=== PATIENT | female | born 1935 | race Caucasian/White ===

== ENCOUNTER 2017-11-21 12:08 | Emergency (ER) | payer MEDICARE ==
[~2017-11-21] VITALS: Ht 160 cm; Wt 58.0 kg
[2017-11-21 12:09] VITALS: BP 153/84; PULSE 91; RESP 16; TEMP 98.7; O2SAT 96
--- NOTE | 2017-11-21 12:55 | RADRPT ---
EXAM DATE/TIME: 11/21/2017 12:37 [facility] COMPARISON: No previous studies available for comparison. INDICATIONS : Flu-like symptoms for 1 month. MEDICAL HISTORY : None. SURGICAL HISTORY : None. ENCOUNTER: Initial ACUITY: 1 month PAIN SCORE: 0/10 LOCATION: Bilateral chest FINDINGS: PA and lateral views of the chest demonstrate the lungs to be symmetrically aerated without evidence of mass, infiltrate or effusion. The cardiomediastinal contours are unremarkable. Osseous structure s are intact. Costicartilage calcification is present. CONCLUSION: No acute disease. There is no evidence of pneumonia. Huber Napoles MD on November 21, 2017 at 12:52 Board Certified Radiologist. This report was verified electronically.
[2017-11-21 13:33] LABS: AUTOMATED NEUTROPHIL # 11.3 TH/MM3 (1.8-7.7); BASOPHIL # 0.1 TH/MM3 (0-0.2); BASOPHIL % 0.4 % (0.0-2.0); EOSINOPHIL # 0.2 TH/MM3 (0-0.4); EOSINOPHIL % 1.2 % (0.0-4.0); HEMATOCRIT 44.1 % (35.0-46.0); HEMOGLOBIN 14.7 GM/DL (11.6-15.3); LYMPHOCYTE # 2.2 TH/MM3 (1.0-4.8); MEAN CELL VOLUME 92.2 FL (80.0-100.0); MEAN CORPUSCULAR HEMOGLOBIN 30.8 PG (27.0-34.0); MEAN CORPUSCULAR HGB CONC 33.5 % (32.0-36.0); MEAN PLATELET VOLUME 6.6 FL (7.0-11.0); MONO % 6.7 % (0.0-8.0); NEUT % 76.7 % (16.0-70.0); PLATELET COUNT 399 TH/MM3 (150-450); RED BLOOD COUNT 4.78 MIL/MM3 (4.00-5.30); RED CELL DISTRIBUTION WIDTH 13.6 % (11.6-17.2); WHITE BLOOD COUNT 14.8 TH/MM3 (4.0-11.0)
[2017-11-21 13:54] LABS: ALBUMIN 3.6 GM/DL (3.4-5.0); ALT (GPT) 18 U/L (10-53); AST (GOT) 19 U/L (15-37); BICARBONATE 25.4 MEQ/L (21.0-32.0); BLOOD UREA NITROGEN 18 MG/DL (7-18); CALCIUM 9.8 MG/DL (8.5-10.1); CHLORIDE 104 MEQ/L (98-107); CREATININE 1.25 MG/DL (0.50-1.00); GLOMERULAR FILTRATION RATE 41 ML/MIN (>89); GLUCOSE,RANDOM 90 MG/DL (74-106); MAGNESIUM 2.6 MG/DL (1.5-2.5); SODIUM (NA) 137 MEQ/L (136-145)
[2017-11-21 13:57] LABS: ALKALINE PHOSPHATASE 93 U/L (45-117); TOTAL BILIRUBIN ADULT 0.7 MG/DL (0.2-1.0); TOTAL PROTEIN 7.3 GM/DL (6.4-8.2)
[2017-11-21 15:00] VITALS: BP 150/67; PULSE 84; RESP 18; O2SAT 94
[2017-11-21] MEDS ORDERED: LOVA20TA PO (17:04)
[2017-11-21] MEDS ORDERED: SPIRCAP INH (17:04)
[2017-11-21] MEDS ORDERED: LOSA50TA PO (17:04)
[2017-11-21] MEDS ORDERED: FLUT1SPR9 EACH NARE (17:04)
[2017-11-21] MEDS ORDERED: ALBU0.08 NEB (17:14)
[2017-11-21] MEDS ORDERED: ADVA250A INH (17:14)
--- NOTE | 2017-11-21 17:49 | PD ---
HPI Chief Complaint: Respiratory Symptoms Time Seen by Provider: 17:32 Travel History International Travel<30 days: No Contact w/Intl Traveler<30days: No Traveled to known affect area: No History of Present Illness HPI 81-year-old female complains of sinus pressure, sore throat, earache, shortness of breath, fever or chills. Patient states that the symptoms started about a month ago. Patient has history of COPD. Patient with seen by surgery tech Dr. Johnson and given a prescription for prednisone for 8 days. Patient was not given prescription for Levaquin subsequently for 5 days. Last dose of Levaquin because 6 days ago. Patient with again given prescription for Medrol Dosepak recently. Patient states that she has persistent symptoms sinus pressure, right -sided frontal headache, right-sided facial pressure, sore throat with right earache. Patient states that the symptoms are worse for the past 2 days. Patient states that she having low-grade fever chills at home. Patient denies any nausea vomiting diarrhea. Patient denies any chest pain. Patient denies abdominal pain. Patient with advised by personal physician to go to ED for evaluation. Patient has history of hypertension, hyper lipidemia. PFSH Past Medical History Asthma: Yes High Cholesterol: Yes COPD: Yes Hypertension: Yes Past Surgical History Hysterectomy: Yes Tympanostomy Tube: Yes Other Surgery: Yes (HEMMROIDS REMOVED ) Social History Alcohol Use: No Tobacco Use: No Substance Use: No Allergies-Medications (Allergen,Severity, Reaction): Coded Allergies: Sulfa (Sulfonamide Antibiotics) (Verified Allergy, Unknown, 11/21/17) Reported Meds & Prescriptions Reported Meds & Active Scripts Active Reported Advair Diskus Inh (Fluticasone-Salmeterol Inh) 250-50 Mcg/Blist Aer 1 Puff INH BID Rinse mouth after use. Albuterol Neb (Albuterol Sulfate) 2.5 Mg/3 Ml Neb 2.5 Mg NEB Q6HR PRN Spiriva Handihaler (Tiotropium Inh) 18 Mcg Cap 18 Mcg INH DAILY 1 capsule = 18 mcg Lovastatin 20 Mg Tab 20 Mg PO DAILY Flonase Allergy Relief Children Nasal Roselle (Fluticasone Nasal Roselle) 50 Mcg/ Act Roselle 1 Roselle EACH NARE DAILY 50 mcg/spray Losartan (Losartan Potassium) 50 Mg Tab 50 Mg PO DAILY Review of Systems General / Constitutional: No: Fever Eyes: No: Visual changes HENT: Positive: Headaches, Sore Throat, Congestion, Earache Cardiovascular: No: Chest Pain or Discomfort Respiratory: Positive: Shortness of Breath Gastrointestinal: No: Abdominal Pain Genitourinary: No: Dysuria Musculoskeletal: No: Pain Skin: No Rash Neurologic: No: Weakness Psychiatric: No: Depression Endocrine: No: Polydipsia Hematologic/Lymphatic: No: Easy Bruising Physical Exam Narrative GENERAL: Well-nourished, well-developed patient. SKIN: Focused skin assessment warm/dry. HEAD: Normocephalic. EYES: No scleral icterus. No injection or drainage. TM: Clear. Throat: Mouth erythematous. NECK: Supple, trachea midline. No JVD patient has mild right anterior cervical lymphadenopathy. No meningismus.. CARDIOVASCULAR: Regular rate and rhythm without murmurs, gallops, or rubs. RESPIRATORY: Breath sounds equal bilaterally. No accessory muscle use. GASTROINTESTINAL: Abdomen soft, non-tender, nondistended. MUSCULOSKELETAL: No cyanosis, or edema. BACK: Nontender without obvious deformity. No CVA tenderness. Neurologic exam normal. Data Data Last Documented VS Vital Signs Date Time Temp Pulse Resp B/P (MAP) Pulse Ox O2 Delivery O2 Flow Rate FiO2 11/21/17 15:00 84 18 150/67 (94) 94 Room Air 11/21/17 12:09 98.7 Orders Orders Complete Blood Count With Diff (11/21/17 12:27) Comprehensive Metabolic Panel (11/21/17 12:27) Magnesium (Mg) (11/21/17 12:27) Chest, Pa & Lat (11/21/17 12:27) Group A Rapid Strep Screen (11/21/17 17:40) Influenzae A/B Antigen (11/21/17 17:40) Ct Sinuses W/O Iv Contrast (11/21/17 ) Strep Culture (Group A) (11/21/17 17:44) Labs Laboratory Tests Test 11/21/17 13:10 White Blood Count 14.8 TH/MM3 Red Blood Count 4.78 MIL/MM3 Hemoglobin 14.7 GM/DL Hematocrit 44.1 % Mean Corpuscular Volume 92.2 FL Mean Corpuscular Hemoglobin 30.8 PG Mean Corpuscular Hemoglobin Concent 33.5 % Red Cell Distribution Width 13.6 % Platelet Count 399 TH/MM3 Mean Platelet Volume 6.6 FL Neutrophils (%) (Auto) 76.7 % Lymphocytes (%) (Auto) 15.0 % Monocytes (%) (Auto) 6.7 % Eosinophils (%) (Auto) 1.2 % Basophils (%) (Auto) 0.4 % Neutrophils # (Auto) 11.3 TH/MM3 Lymphocytes # (Auto) 2.2 TH/MM3 Monocytes # (Auto) 1.0 TH/MM3 Eosinophils # (Auto) 0.2 TH/MM3 Basophils # (Auto) 0.1 TH/MM3 CBC Comment DIFF FINAL Differential Comment Blood Urea Nitrogen 18 MG/DL Creatinine 1.25 MG/DL Random Glucose 90 MG/DL Total Protein 7.3 GM/DL Albumin 3.6 GM/DL Calcium Level 9.8 MG/DL Magnesium Level 2.6 MG/DL Alkaline Phosphatase 93 U/L Aspartate Amino Transf (AST/SGOT) 19 U/L Alanine Aminotransferase (ALT/SGPT) 18 U/L Total Bilirubin 0.7 MG/DL Sodium Level 137 MEQ/L Potassium Level 4.0 MEQ/L Chloride Level 104 MEQ/L Carbon Dioxide Level 25.4 MEQ/L Anion Gap 8 MEQ/L Estimat Glomerular Filtration Rate 41 ML/MIN MDM Medical Decision Making Medical Screen Exam Complete: Yes Emergency Medical Condition: Yes Interpretation(s) Last Impressions Chest X-Ray 11/21/17 1227 Signed Impressions: Service Date/Time: Tuesday, November 21, 2017 12:37 - CONCLUSION: No acute disease. There is no evidence of pneumonia. Huber Napoles MD Sinuses CT 11/21/17 0000 Signed Impressions: Service Date/Time: Tuesday, November 21, 2017 18:02 - CONCLUSION: 1. Minimal mucosal thickening involving the left sphenoid sinus. No acute paranasal sinus disease observed. Brady Henley Jr., MD Differential Diagnosis Differential diagnosis including lateral syndrome, sinusitis, bronchitis, pneumonia, dehydration, electrolyte imbalance. Narrative Course 81-year-old female with persistent shortness of breath, sinus pressure, sore throat earache and shortness of breath. History of COPD. Diagnosis Primary Impression: Viral syndrome Patient Instructions: General Instructions Additional Instructions: Tylenol ibuprofen for fever aching pain. Follow-up with personal physician. Return if worse. Med/Other Pt SpecificInfo: No Change to Meds Disposition: 01 DISCHARGE HOME Condition: Stable AnkurJovan MD Nov 21, 2017 17:49
--- NOTE | 2017-11-21 18:45 | RADRPT ---
EXAM DATE/TIME: 11/21/2017 18:02 [facility] COMPARISON: No previous studies available for comparison. INDICATIONS : Sore throat; shortness of breath. RADIATION DOSE: 10.09 CTDIvol (mGy) MEDICAL HISTORY : Hypertension. Chronic obstructive pulmonary disease. SURGICAL HISTORY : Hysterectomy. ENCOUNTER: Initial ACUITY: 1 day PAIN SCORE: 0/10 LOCATION: Bilateral sinus TECHNIQUE: Volumetric scanning of the paranasal sinuses was performed. Using automated exposure control and adj ustment of the mA and/or kV according to patient size, radiation dose was kept as low as reasonably a chievable to obtain optimal diagnostic quality images. DICOM format image data is available electro nically for review and comparison. FINDINGS: MAXILLARY SINUSES: Normal. No significant mucosal thickening or fluid. Infundibula are patent. No anomalous inferior orbital ethmoid (Dominguez) air cells. ETHMOID SINUSES: Normal. No significant mucosal thickening or fluid. Fovea ethmoidal and lamina papyracea are symmet mini and intact. SPHENOID SINUSES: There is minimal mucosal thickening involving the left sphenoid sinus. No air-fluid level. Right sphe noid sinus is clear. FRONTAL SINUSES: Normal. No significant mucosal thickening or fluid. Frontal recesses are patent. No anomalous fron kavitha air cells. NASAL FOSSA: Normal. No septal perforation or deviation. No karina bullosa or paradoxical turbinates are identifie d. OTHER: Normal. Limited views of the skull base and orbits are unremarkable. CONCLUSION: 1. Minimal mucosal thickening involving the left sphenoid sinus. No acute paranasal sinus disease obs erved. Brady Henley Jr., MD on November 21, 2017 at 18:41 Board Certified Radiologist. This report was verified electronically.
== END 2017-11-21 20:10 | disposition home or self-care (01) ==
LOC: NEPD 12:08
DX: B34.9 Viral infection, unspecified (principal); J44.9 Chronic obstructive pulmonary disease, unspecified; E78.00 Pure hypercholesterolemia, unspecified; I10 Essential (primary) hypertension; Z79.899 Other long term (current) drug therapy
CPT/HCPCS: 70486; 71046; 80053; 83735; 85025; 87081; 87804; 87880; 99285